=== PATIENT | male | born 1985 | race Caucasian/White ===

== ENCOUNTER 2023-12-08 08:29 | Emergency (ER) | payer BC, SELFPAY ==
[2023-12-08 08:40] VITALS: BP 162/102
[2023-12-08 08:50] LABS: Glucose - Point of Care 151 mg/dl (70-99)
[2023-12-08 09:02] VITALS: BMI 30.7
--- NOTE | 2023-12-08 09:19 | ED.GENMED ---
History of Present Illness
General
Chief Complaint: Fainting Sensation
Source: patient and spouse
Exam Limitations: none
Time Seen by Provider: 12/08/23 09:04
Travel History
Have you had any contact with someone who has COVID-19?: No
Do you have any symptoms of coronavirus? Fever > 100 degrees, chills, cough, shortness of breath, sore throat, loss of taste or smell, muscle aches, or headache?: No
History of Present Illness
History of Present Illness:
See MDM
Past History
Past History
ED Past Medical History: None
ED Past Surgical History: None
Social History
Tobacco: Non-smoker
Alcohol: None
Phy Exam
Physical Exam
Physical Exam:
See MDM
Course
Orders/Labs/Results
Orders:
Orders
12/08/23 09:11
COVID-19 Antigen Urgent
Source: Nasal Swab
Complete Blood Count/With Diff Urgent
Comprehensive Metabolic Panel Urgent
Glycohemoglobin (HgbA1c) Urgent
Monotest Urgent
Comment: ADD ON
Influenza A+B Rapid Molecular Urgent
MARLEE Source: Nasal Swab
Specimen Description:
12/08/23 09:17
0.9% Sodium Chloride 1000 ml [Nss] 1,000 ml IV BOLUS
12/08/23 09:18
Add On- LAB Urgent
Tests Added?: Hgb a1c, Monotest
Electrocardiogram (*1) Urgent
Reason for Study: Vertigo / Dizzy
EKG- Treatment ONCE
Abnormal Lab Results
12/08/23 12/08/23
08:47 09:11
WBC 17.1 H 10^3/uL
(4.8-10.8)
Abs Immat Gran (auto) 0.1 H 10^3/uL
(0-0.05)
Absolute Neuts (auto) 14.1 H 10^3/uL
(1.4-6.5)
Absolute Monos (auto) 0.9 H 10^3/uL
(0.1-0.6)
Neutrophils % 82.4 H %
(42.2-75.2)
Lymphocytes % 11.0 L %
(20.5-51.1)
Glucose 163 H mg/dl
(70-99)
Calcium 10.4 H mg/dl
(8.4-10.2)
Alkaline Phosphatase 153 H U/L
(38-126)
Albumin 5.1 H g/dl
(3.5-5.0)
POC Glucose 151 H mg/dl
(70-99)
12/08/23 09:11
12/08/23 09:11
Vital Signs
Initial and Last Documented VS:
Initial Vital Signs
Temp Pulse Resp BP Pulse Ox
98.9 F 100 17 162/102 100
12/08/23 08:40 12/08/23 08:40 12/08/23 08:40 12/08/23 08:40 12/08/23 08:40
Last Documented Vital Signs
Temp Pulse Resp BP Pulse Ox
98.9 F 82 16 137/89 100
12/08/23 08:40 12/08/23 11:00 12/08/23 11:00 12/08/23 09:45 12/08/23 11:00
MDM/Problems Addressed
Differential Diagnosis Includes:
HPI and MDM Narrative:
38-year-old male presenting with vague complaints. Over the past week or so, patient states he feels lightheaded and fatigued. He complains of brain fog. He has decreased appetite. Patient denies headache or fevers or cough. He is recently
getting over a viral URI. He initially thought this could be COVID or flu. Patient has a marijuana card. He tried smoking marijuana to help with symptoms but states this has not helped either.
On exam, he is well-appearing and nontoxic. He has no cerebellar signs. He is mildly dehydrated. Patient is orthostatic. No vertiginous symptoms. We discussed he has vague complaints and will obtain basic blood work and EKG. Patient states
that his brother recently had a hemorrhagic stroke which they attributed to COVID. I discussed CT head but discussed this is likely low yield. Patient acknowledged and agreed. We discussed that if symptoms persist or if he ever develops headaches
that he test talk to his doctor about further brain imaging such as MRI
Physical exam
General: Well appearing and non-toxic
HEENT: protecting airway. Dry mucous membranes. TMs clear
Neck: supple
CV: No evidence of cyanosis. Regular rate and rhythm
Resp: No accessory muscle use. Lungs clear
Abd: Non-distended
Extremities: No deformities. No leg edema
Neuro: alert. Normal finger-nose bilaterally
Psych: Appears mildly anxious
Skin: Intact
Problems Addressed including Acute and Chronic Conditions affecting care:
1. Dizziness
Acuity: acute
Prognosis: stable
Details: Likely in the setting of dehydration. Will obtain basic blood work and EKG
2. Hyperglycemia
Acuity: acute
Prognosis: stable
Details: Discussed that he is likely prediabetic. Discussed having his PCP reevaluate his sugar and hemoglobin A1c
Updates
After fluids, patient feeling better. I discussed blood work abnormalities in regards to elevated blood sugar and elevated white blood cell count. Given no fever, discussed likely stress response. Upon further questioning, patient does admit that
he has been urinating more frequently. We discussed this is likely related to hyperglycemia. We discussed that he is likely prediabetic but discussed having this followed up by PCP. Patient acknowledges and agrees
Differential Diagnosis (but not limited to): Anxiety, dehydration, new onset diabetes
Testing considered: CT head
Drug therapy (if applicable): OTC meds, please see d/c instruction regarding Rx drugs
Amount and/or Complexity of Data Reviewed
Clinical info obtained from: Patient
External data reviewed: N/A
Labs I independently reviewed (but not limited to): Hyperglycemia, leukocytosis
Radiology: N/A
Pulse Ox: not hypoxic
EKG independently reviewed: Sinus rhythm, normal axis, no STEMI
Three Knife Trimmer: N/A
Critical Care: N/A
Risk of Complication:
Social Determinants of health: Good social support
Discussed with other providers: N/A
Escalation of Care includes Admit/Obs: After being observed in the Emergency Department, pt stable for discharge.
Occasional wrong word or 'sound a like' substitutions may have occurred due to the inherent limitations of voice recognition software. Read the chart carefully and recognize, using context, where substitutions have occurred.
*Critical Care Note
Total Time (30-74mins, 75-104mins- exclusive of procedures): Not Applicable
ED Attending Note
-
Portions of this chart may have been created with voice recognition software.� Occasional wrong word or��sound alike� substitutions may have occurred due to the inherent limitations of voice recognition software.
Discharge Plan
Departure
Patient Disposition: Home (Routine Discharge)
Date of Disposition: 12/08/23
Time of Disposition: 11:09
Patient with high blood pressure during this ER visit?: Yes
Discharge Problem:
Hyperglycemia
Instructions: BLOOD PRESSURE
Referrals:
Junito Soriano I., DO [Family Provider] -
Activity Restrictions/Additional Instructions:
Please return for any worsening symptoms.
You may return at any time if you have further concerns.
Please follow up with your doctor at the first available appointment, preferably this week. Please discuss your elevated blood sugar. There is concern for prediabetes. Your hemoglobin A1c is still pending. Have this followed up by your doctor.
Thank you for choosing [facility].
Interventions
Interventions:
*Risk Screen - Suicide Last Done: 12/08/23 09:02
*General Assessment Last Done: 12/08/23 09:02
*Neglect/Abuse Screening Last Done: 12/08/23 09:02
*ED COVID-19 Vaccine History Last Done: 12/08/23 08:51
ED- Cardiac Assessment Last Done: 12/08/23 09:10
ED- Neurological Assessment Last Done: 12/08/23 09:10
[2023-12-08 09:24] LABS: % Basophils 0.4 % (0-2); % Eosinophils 0.3 % (0-6); % Immature Granulocytes 0.5 % (0-0.5); % Monocytes 5.4 % (1.7-9.3); % Neutrophils 82.4 % (42.2-75.2); Absolute Basophils 0.1 10^3/uL (0-0.2); Absolute Eosinophils 0.1 10^3/uL (0-0.7); Absolute Immature Granulocytes 0.1 10^3/uL (0-0.05); Absolute Lymphocytes 1.9 10^3/uL (1.2-3.4); Absolute Monocytes 0.9 10^3/uL (0.1-0.6); Absolute Neutrophils 14.1 10^3/uL (1.4-6.5); Hematocrit 44.7 % (39.0-52.0); Hemoglobin 15.9 g/dL (13.0-18.0); Mean Corp Hgb Conc. 35.6 g/dL (33.0-37.0); Mean Corpuscular Hgb 30.2 pg (27.0-31.0); Nucleated Red Blood Cells % 0 % (-); Platelet Count 281 10^3/uL (130-400); Red Blood Cell Count 5.26 10^6/uL (4.70-6.10); Red Cell Dist. Width 11.9 % (11.5-14.5); White Blood Cell Count 17.1 10^3/uL (4.8-10.8)
[2023-12-08] MEDS: NSS 1000 IV (09:29)
[2023-12-08 09:32] LABS: ALT (SGPT) 41 U/L (0-50); AST (SGOT) 28 U/L (17-59); Albumin 5.1 g/dl (3.5-5.0); Alkaline Phosphatase 153 U/L (38-126); Blood Urea Nitrogen 12 mg/dl (9-20); Calcium 10.4 mg/dl (8.4-10.2); Carbon Dioxide 23 mmol/L (22-30); Chloride 103 mmol/L (98-107); Estimated Creatinine Clearance > 125 ml/min; Glucose 163 mg/dl (70-99); Potassium 4.2 mmol/L (3.5-5.1); Sodium 137 mmol/L (135-145); Total Bilirubin 0.7 mg/dl (0.2-1.3); eGFR > 60.00
[2023-12-08 09:45] VITALS: BP 137/89
[2023-12-08 09:49] LABS: COVID-19 Antigen Negative (Negative)
[2023-12-08 10:16] LABS: Monotest Negative (Negative)
== END 2023-12-08 11:18 | disposition home or self-care (01) ==
LOC: EMR 08:29
PROVIDERS: EMERGENCY PHYSICIAN Student in an Organized Health Care Education/Training Program; FAMILY PHYSICIAN Internal Medicine
DX: R73.9 Hyperglycemia, unspecified (principal); R03.0 Elevated blood-pressure reading, without diagnosis of hypertension; E86.0 Dehydration
CPT/HCPCS: 99284; 96360; 80053; 82962; 83036; 85025; 86308; 87502; 87811; 93005

== ENCOUNTER → 2024-08-17 08:56 | Outpatient (REF) | payer BC, SELFPAY | LOC: HWRAD 08:56 | PROVIDERS: ATTENDING PHYSICIAN Nurse Practitioner Family; FAMILY PHYSICIAN Internal Medicine | DX: R10.11 Right upper quadrant pain (principal) | CPT/HCPCS: 76700 ==

== ENCOUNTER → 2025-08-31 16:11 | Outpatient (REF) | payer BC, SELFPAY | LOC: RAD 16:11 | PROVIDERS: ATTENDING PHYSICIAN Nurse Practitioner Adult Health; FAMILY PHYSICIAN Internal Medicine | DX: R10.11 Right upper quadrant pain (principal) | CPT/HCPCS: 74177; Q9967 ==

== ENCOUNTER → 2025-09-30 16:15 | Outpatient (REF) | payer BC, SELFPAY | LOC: MRI 3T 16:15 | PROVIDERS: ATTENDING PHYSICIAN Physician Assistant Medical; FAMILY PHYSICIAN Internal Medicine | DX: K85.90 Acute pancreatitis without necrosis or infection, unspecified (principal) | CPT/HCPCS: 74183; A9575 ==